=== PATIENT | female | born 1980 ===

== ENCOUNTER 2017-06-26 14:06 | Emergency (ER) | payer SELFPAY ==
[2017-06-26 15:32] LABS: Basophils % (Auto) 0.4 % (0.0-1.8); Eosinophils # (Auto) 0.1 K/mm3 (0.0-0.4); Eosinophils % (Auto) 1.1 % (0.0-4.3); Hematocrit 35.1 % (30.3-42.9); Hemoglobin 10.9 gm/dl (10.1-14.3); Lymphocytes # (Auto) 2.7 K/mm3 (1.2-5.4); Lymphocytes % (Auto) 24.3 % (13.4-35.0); Mean Corpuscular HGB Conc 31 % (30-34); Monocytes # (Auto) 0.8 K/mm3 (0.0-0.8); Monocytes % (Auto) 7.5 % (0.0-7.3); Platelet Count 217 K/mm3 (140-440)
[2017-06-26 15:44] LABS: Mean Corpuscular Hemoglobin 21 pg (28-32); Mean Corpuscular Volume 66 fl (79-97); Red Cell Distribution Width 20.8 % (13.2-15.2)
[2017-06-26 15:48] LABS: Alanine Aminotransferase 7 units/L (7-56); Albumin 3.6 g/dL (3.9-5); BUN/Creatinine Ratio 14; Blood Urea Nitrogen 10 mg/dL (7-17); Calcium 8.7 mg/dL (8.4-10.2); Hemolysis Index 1; Lipase 72 units/L (13-60)
[2017-06-26 16:02] LABS: Bacteria,Urine 1+ /HPF (Negative); Bilirubin,Urine NEG (Negative); Blood,Urine NEG (Negative); Color,Urine Yellow (Yellow); Mucus,Urine FEW /HPF
[2017-06-26] MEDS ORDERED: ZOFRAN IV ONE (16:05)
[2017-06-26] MEDS: APRESOLINE IV ONE ×4 (16:35→18:18)
[2017-06-26] MEDS ORDERED: MACROBID PO ONE (17:49)
--- NOTE | 2017-06-26 18:31 | Emergency Department Report ---
HPI - General Chief Complaint: Nausea/Vomiting/Diarrhea Time Seen by Provider: 06/26/17 16:03 - HPI HPI: The patient is a 36-year-old female , EGA 10 weeks, presents for evaluation of nausea and vomiting. The patient reports recurrent severe nausea and vomiting for the past one to 2 weeks, exacerbated with eating. The patient denies fever, chills, night sweats, trauma to the abdomen or pelvis, abdominal pain, chest pain, dyspnea, hematemesis, diarrhea, blood in the stool, dark tarry stool, dysuria, hematuria, flank pain, genital discharge, inability to pass flatus. ED Past Medical Hx - Past Medical History Previous Medical History?: Yes Hx Hypertension: Yes (no meds) Additional medical history: Vaginal delivery 06-30-2002, Blood transfusions for anemia, Heavy menses - Surgical History Past Surgical History?: Yes Additional Surgical History: wisdom tooth extraction - Social History Smoking Status: Never Smoker Substance Use Type: Alcohol - Medications Home Medications: Home Medications Medication Instructions Recorded Confirmed Last Taken Type Ondansetron [Zofran TAB] 4 mg PO Q8HR PRN #20 tablet 06/26/17 Unknown Rx Pnv No.95/Ferrous Fum/Folic AC 1 each PO QDAY #31 tablet 06/26/17 Unknown Rx [ Vitamin Tablet] hydrALAZINE [Apresoline TAB] 25 mg PO TID #30 tab 06/26/17 Unknown Rx ED Review of Systems ROS: Stated complaint: VOMITING/FEELS BAD Other details as noted in HPI Constitutional: denies: fever ENT: denies: throat or neck pain Respiratory: denies: cough, shortness of breath Cardiovascular: denies: chest pain Endocrine: denies unexplained weight loss or gain Gastrointestinal: denies: abdominal pain reports nausea and vomiting Genitourinary: denies: dysuria Musculoskeletal: denies: leg swelling Skin: denies: rash Neurological: denies: headache Hematological/Lymphatic: denies: easy bleeding or easy bruising Psych: denies sadness or hopelessness Physical Exam - Physical Exam Vital Signs: Vital Signs 06/26/17 06/26/17 14:50 16:35 Temperature 99.1 F Pulse Rate 100 H 87 Respiratory 20 Rate Blood Pressure 202/127 177/108 O2 Sat by Pulse 99 Oximetry Physical Exam: General: well-nourished, well-developed, no acute distress Head: Normocephalic, atraumatic Eyes: normal sclera ENT: Mucous membranes are pale and dry Neck: No neck stiffness, no cervical adenopathy Respiratory: Breath sounds equal bilaterally, no wheezing, rales, or rhonchi Cardio: S1 and S2 present, no murmurs, rubs, gallops, capillary refill is delayed Abdomen: Normoactive bowel sounds, soft abdomen, no tenderness Chest WALL/Back: No tenderness to palpation of the chest wall, no CVA tenderness with percussion Musc: No pitting edema Skin: No rash Neuro: no facial drooping, normal speech Psych: Normal affect ED Course Vital Signs 06/26/17 06/26/17 14:50 16:35 Temperature 99.1 F Pulse Rate 100 H 87 Respiratory 20 Rate Blood Pressure 202/127 177/108 O2 Sat by Pulse 99 Oximetry ED Medical Decision Making - Lab Data Result diagrams: 06/26/17 15:11 06/26/17 15:11 - Medical Decision Making The patient was seen and examined by myself. The patient is placed on a case monitor and continuous pulse ox. On initial evaluation, the patient was found to be in no distress. Evaluation orders are placed. IV access is established and the patient is given IV hydralazine for her elevated blood pressure and IV Zofran for her nausea and vomiting. Revealed positive beta hCG , and otherwise Lab results were non-concerning including WBC, hemoglobin, hematocrit, electrolytes, renal function, LFTs, lipase, and urinalysis. Ultrasound of the pelvis is obtained and reveals normal intrauterine . On reexamination the patient's blood pressure was found to decrease outside of range concerning for hypertensive emergency. The patient is stable for discharge with outpatient follow-up. The patient is given follow-up and return instructions. The patient expressed understanding and agreed with the plan. The patient is discharged in stable condition. Critical care attestation.: If time is entered above; I have spent that time in minutes in the direct care of this critically ill patient, excluding procedure time. ED Disposition Clinical Impression: Nausea and vomiting during , Dehydration, mild, Hypertensive urgency Disposition: - TO HOME OR SELFCARE Is pt being admited?: No Does the pt Need Aspirin: No Condition: Stable Instructions: Morning Sickness (ED), Hypertension (ED) Prescriptions: hydrALAZINE [Apresoline TAB] 25 mg PO TID #30 tab Ondansetron [Zofran TAB] 4 mg PO Q8HR PRN #20 tablet PRN Reason: Nausea Pnv No.95/Ferrous Fum/Folic AC [ Vitamin Tablet] 1 each PO QDAY #31 tablet Referrals: AZUCENA MORILLO MD [Staff Physician] - 3-5 Days Time of Disposition: 19:35
--- NOTE | 2017-06-26 19:28 | Ultrasound Report ---
FINAL REPORT PROCEDURE: US OB TRANSVAGINAL and transabdominal TECHNIQUE: Real-time transabdominal and transvaginal sonography of the uterus, placenta, amniotic fluid, adnexa, and fetus was performed with image documentation. Measurements were obtained to determine age/size. M-mode Doppler was used to document heartbeat. CPT 95097 and 83515 HISTORY: vomiting, , no confirmatory US COMPARISON: No prior studies are available for comparison. FINDINGS: ADDITIONAL GESTATION: None. CRL: 23 mm, which corresponds to a gestational age of: 9 weeks, 0 days. Yolk Sac: Normal. Embryonic Cardiac Activity: Gestational Sac: Normal. Amniotic fluid: Normal. Cervix: Normal. Right Ovary: Normal. Left Ovary: Normal. Estimated delivery date: 01/29/2018 IMPRESSION: 1. Single live intrauterine gestation at approximately 9 weeks, 0 days. 2. EDC by US 01/29/2018 3. Complete anatomic survey at 18-20 weeks suggested.
--- NOTE | 2017-06-26 19:30 | Ultrasound Report ---
FINAL REPORT PROCEDURE: US OB TRANSVAGINAL and transabdominal TECHNIQUE: Real-time transabdominal and transvaginal sonography of the uterus, placenta, amniotic fluid, adnexa, and fetus was performed with image documentation. Measurements were obtained to determine age/size. M-mode Doppler was used to document heartbeat. CPT 40813 and 05060 HISTORY: vomiting, , no confirmatory US COMPARISON: No prior studies are available for comparison. FINDINGS: ADDITIONAL GESTATION: None. CRL: 23 mm, which corresponds to a gestational age of: 9 weeks, 0 days. Yolk Sac: Normal. Embryonic Cardiac Activity: Gestational Sac: Normal. Amniotic fluid: Normal. Cervix: Normal. Right Ovary: Normal. Left Ovary: Normal. Estimated delivery date: 01/29/2018 IMPRESSION: 1. Single live intrauterine gestation at approximately 9 weeks, 0 days. 2. EDC by US 01/29/2018 3. Complete anatomic survey at 18-20 weeks suggested. PROCEDURE: TECHNIQUE: HISTORY: COMPARISON: FINDINGS: IMPRESSION:
[2017-06-26] MEDS ORDERED: NORMODYNE IV ONE (19:59)
[2017-06-26 20:57] VITALS: BP 137/98
== END 2017-06-26 21:02 | disposition home or self-care (01) ==
LOC: ED 14:06
DX: O21.9 Vomiting of pregnancy, unspecified (principal); O16.1 Unspecified maternal hypertension, first trimester; I16.0 Hypertensive urgency; E86.0 Dehydration; Z3A.10 10 weeks gestation of pregnancy; Z88.0 Allergy status to penicillin
CPT/HCPCS: 36415; 76801; 76817; 80053; 81001; 83690; 84702; 85025; 96374; 96375; 99284; J0360; J2405